=== PATIENT | female | born 1985 | race Caucasian/White ===

== ENCOUNTER 2017-05-10 02:50 | Emergency (ER) | payer SELFPAY ==
[~2017-05-10] VITALS: Ht 185.4 cm; Wt 97.5 kg
[2017-05-10 02:54] VITALS: BP 154/79
--- NOTE | 2017-05-10 03:00 | NUR ---
TO BED 09 A 31 YO FEMALE BIBRA 88 FOR ETOH. PATIENT IS AWAKE ALERT X2-3, NO S/S OF ACUTE DISTRESS. BREATHING EVEN AND UNLABORED. VSS. INITIATED COMFORT AND SAFETY MEASURES. AWAITING FOR ER MD SILVA.
--- NOTE | 2017-05-10 04:12 | NUR ---
CALLED AND NOTIFIED [employer] DISPATCHER OF PT ELOPEMENT, APPROXIMENTLY 0400.
== END 2017-05-10 04:38 | disposition left against medical advice (07) ==
LOC: ER 02:51
DX: F10.129 Alcohol abuse with intoxication, unspecified (principal)
CPT/HCPCS: 82962; 99283; A4606; Z7610